=== PATIENT | female | born 1970 | race African-American/Black ===

== ENCOUNTER 2018-01-09 10:17 | Inpatient (IN) | payer OTHER ==
[2018-01-09 10:38] VITALS: BMI 30.1
--- NOTE | 2018-01-09 11:25 | HP ---
CIWA Score - CIWA Score Nausea/Vomitin-Mild Nausea/No Vomiting Muscle Tremors: 2 Anxiety: 6 Agitation: 1-Slight > Activity Paroxysmal Sweats: No Perspiration Orientation: 0-Oriented Tacttile Disturbances: 0-None Auditory Disturbances: 0-None Visual Disturbances: 0-None Headache: 0-None Present CIWA-Ar Total Score: 10 Admission ROS S - HPI Chief Complaint: patient here requesting detox from etoh use , reports every other day 5 cans x 24 oz x several years, reports irritability , nausea, diarrhea, tremors if not drinking , denies w/d seizures, + blackouts, denies falls, latest use 2 d . ago . Currently reports severe anxiety , diarrhea, chills, nausea , tremors. pmhx : hiv + , hld , bipolar d/o , hsv , pshx : ectopic 1986 w/ fallopian tube removal all : nkda lmp : age 43 cocaine use 100-150 $ / every other day , denies ivdu tobacco : 7-8 cigs/ day , requesting nrt w/ gum cannabis : 5 $ / every other day Allergies/Adverse Reactions: Allergies Allergy/AdvReac Type Severity Reaction Status Date / Time No Known Drug Allergies Allergy Verified 01/09/18 10:41 - Ebola screening Have you traveled outside of the country in the last 21 days: No Have you had contact with anyone from an Ebola affected area: No Have you been sick,other than usual withdrawal symptoms: No Do you have a fever: No Patient History - Patient Medical History Hx Anemia: No Hx Asthma: No Hx Chronic Obstructive Pulmonary Disease (COPD): No Hx Cancer: No Hx Cardiac Disorders: No Hx Congestive Heart Failure: No Hx Hypertension: No Hx Hypercholesterolemia: Yes (no med) Hx Pacemaker: No HX Cerebrovascular Accident: No Hx Seizures: No Hx Dementia: No Hx Diabetes: No Hx Gastrointestinal Disorders: Yes (acid reflux) Hx Liver Disease: No Hx Genitourinary Disorders: No Hx Sexually Transmitted Disorders: Yes (genital herpes) Hx Renal Disease (ESRD): No Hx Thyroid Disease: No Hx Human Immunodeficiency Virus (HIV): Yes (since 2006) Hx Hepatitis C: No Hx Depression: Yes Hx Suicide Attempt: Yes (pill overdose in 2014) Hx Schizophrenia: No - Patient Surgical History Past Surgical History: Yes Hx Neurologic Surgery: No Hx Cataract Extraction: No Hx Cardiac Surgery: No Hx Lung Surgery: No Hx Breast Surgery: No Hx Breast Biopsy: No Hx Abdominal Surgery: Yes (ectopic in 1996) Hx Appendectomy: No Hx Cholecystectomy: No Hx Genitourinary Surgery: No Hx Section: No Hx Orthopedic Surgery: No Other Surgical History: ectopic in 1996 Anesthesia Reaction: No - PPD History Previous Implant?: Yes Documented Results: Negative w/proof Implanted On Prior [facility] Admission?: Yes Date: 08/14/12 Results: 0 mm - Reproductive History Patient : No - Smoking Cessation Smoking history: Current every day smoker Have you smoked in the past 12 months: Yes Aproximately how many cigarettes per day: 6 Hx Chewing Tobacco Use: No Initiated information on smoking cessation: No - Substances Abused Crack Route: Smoking Frequency: 3-6 times per week Amount used: $100 Age of first use: 30 Date of Last Use: 01/07/18 Alcohol-beer Route: Oral Frequency: Daily Amount used: 5 (24 oz.) Age of first use: 16 Date of Last Use: 01/07/18 Marijuana Route: Smoking Frequency: 3-6 times per week Amount used: $5 Age of first use: 11 Date of Last Use: 01/07/18 Family Disease History - Family Disease History Family Disease History: Heart Disease: Grandparent (mi), Mother (cva) Admission Physical Exam BHS - Vital Signs Vital Signs: Vital Signs - 24 hr 01/09/18 10:30 Temperature 98.1 F Pulse Rate 63 Respiratory 18 Rate Blood Pressure 134/82 - Physical General Appearance: Yes: Within Normal Limits, No Apparent Distress, Nourished, Appropriately Dressed HEENTM: Yes: Within Normal Limits, EOMI, Hearing grossly Normal, Normocephalic, Normal Voice, MICHAELLE, Pharynx Normal, Nasal Congestion, Rhinorrhea, Other (nasal mucosa erythema) Respiratory: Yes: Chest Non-Tender, Decreased Breath Sounds, No Respiratory Distress, No Accessory Muscle Use, Wheezing (Bobby UL) Neck: Yes: Within Normal Limits, No masses,lesions,Nodules, Trachea in good position, Other (left sided ol d scar - per pt lymph node drainage 2011) Cardiology: Yes: Within Normal Limits, Regular Rhythm, Regular Rate Abdominal: Yes: Within Normal Limits, Normal Bowel Sounds, Non Tender, Flat, Soft Genitourinary: Yes: Within Normal Limits Back: Yes: Within Normal Limits, Normal Inspection Musculoskeletal: Yes: Within Normal Limits, full range of Motion, Gait Steady, Pelvis Stable Extremities: Yes: Normal Capillary Refill, Normal Inspection, Normal Range of Motion, Non-Tender, Tremors Neurological: Yes: Within Normal Limits, Fully Oriented, Alert, Motor Strength 5 /5, Normal Mood/Affect, Normal Response Integumentary: Yes: Within Normal Limits, Normal Color, Dry, Warm Lymphatic: Yes: Within Normal Limits BHS Breath Alcohol Content Breath Alcohol Content: 0 Urine Pregancy Test - Result Urine Test Results: Negative- NO Line Present Urine Drug Screen - Results Drug Screen Negative: No Urine Drug Screen Results: THC-Marijuana, HEMANTH-Cocaine
[2018-01-09] MEDS ORDERED: IBUPROFEN 400 MG TABLET (FP) PO PRN (11:26)
[2018-01-09] MEDS ORDERED: ACETAMINOPHEN 325 MG TABLET (FP) PO PRN (11:26)
[2018-01-09] MEDS ORDERED: MAGNESIUM CITRATE 300 ML BOTTLE PO PRN (11:26)
[2018-01-09] MEDS ORDERED: guaiFENesin/D-METHORPHAN HB 10 ML UNIT-DOSE CUPS PO PRN (11:26)
[2018-01-09] MEDS ORDERED: MENTHOL/PHENOL 1 EACH UD MM PRN (11:26)
[2018-01-09] MEDS ORDERED: hydrOXYzine PAMOATE 25 MG CAPSULE (FP) PO PRN (15:05)
[2018-01-09] MEDS: EMTRICITAB/RILPIVIRI/TENOF ALA (ODEFSEY) TABLET PO SCH (15:16)
[2018-01-09] MEDS: [UNRECOGNIZED DRUG - OTHER] PO SCH (15:28)
[2018-01-09] MEDS: ALBUTEROL SO4 0.083% IH SOL 2.5 MG/3 ML VIAL.NEB. NEB PRN (15:29)
--- NOTE | 2018-01-09 16:18 | EKG ---
Test Reason : Blood Pressure : / mmHG Vent. Rate : 056 BPM Atrial Rate : 056 BPM P-R Int : 160 ms QRS Dur : 092 ms QT Int : 446 ms P-R-T Axes : 055 013 048 degrees QTc Int : 430 ms SINUS BRADYCARDIA OTHERWISE NORMAL ECG NO PREVIOUS ECGS AVAILABLE Confirmed by BRYANT HSU MD ([id number]) on 01/09/2018 4:18:42 PM Referred By: Confirmed By:BRYANT HSU MD
[2018-01-09] MEDS: chlordiazePOXIDE HCL 25 MG CAPSULE PO SCH ×2 (17:39→22:20)
[2018-01-09 18:07] LABS: URINE APPEARANCE CLEAR; URINE BILIRUBIN NEGATIVE (<2.0 mg/dL); URINE COLOR LTYELLOW; URINE GLUCOSE (UA) NEGATIVE (NEGATIVE); URINE KETONE NEGATIVE (NEGATIVE); URINE LEUK ESTERASE NEGATIVE (NEGATIVE); URINE NITRITE NEGATIVE (NEGATIVE); URINE PROTEIN NEGATIVE (NEGATIVE); URINE UROBILINOGEN NEGATIVE mg/dL (0.2-1.0)
[2018-01-09 18:11] LABS: EPI CELLS RARE /HPF (FEW); URINE MUCUS RARE
[2018-01-09] MEDS: THIAMINE HCL 100 MG TABLET (FP) PO SCH (22:19)
[2018-01-09] MEDS: MELATONIN 5 MG TABLETS PO PRN (22:20)
[2018-01-10] MEDS: chlordiazePOXIDE HCL 25 MG CAPSULE PO SCH ×2 (05:20→10:16)
[2018-01-10] MEDS: ALBUTEROL SO4 0.083% IH SOL 2.5 MG/3 ML VIAL.NEB. NEB PRN ×2 (05:28→22:56)
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
[2018-01-10] MEDS: risperiDONE 0.5 MG TABLET (FP) PO SCH ×2 (10:16→22:52)
[2018-01-10 10:17] LABS: HEMATOCRIT 38.7 % (32.4-45.2); HEMOGLOBIN 12.6 GM/dL (10.7-15.3); MCH 29.6 pg (25.7-33.7); MCHC 32.7 g/dl (32.0-36.0); MEAN CELL VOLUME 90.7 fl (80-96); MEAN PLT VOLUME 9.9 fl (7.5-11.1); PLATELET COUNT 200 K/MM3 (134-434); RBC 4.27 M/mm3 (3.60-5.2); WHITE BLOOD COUNT 4.2 K/mm3 (4.0-10.0)
[2018-01-10] MEDS: PRENATAL VITAMINS W/ FOLIC ACID TABLET (FP) PO SCH (10:17)
[2018-01-10] MEDS: EMTRICITAB/RILPIVIRI/TENOF ALA (ODEFSEY) TABLET PO SCH (10:17)
[2018-01-10] MEDS: [UNRECOGNIZED DRUG - OTHER] PO SCH (10:17)
[2018-01-10 10:31] LABS: ALBUMIN 3.7 g/dl (3.4-5.0); ALK PHOS 74 U/L (45-117); ANION GAP 9 MMOL/L (8-16); BILIRUBIN,TOTAL 0.2 mg/dL (0.2-1); BLOOD UREA NITROGEN 11 mg/dL (7-18); CALCIUM 9.2 mg/dL (8.5-10.1); CHLORIDE 108 mmol/L (98-107); CO2 26 mmol/L (21-32); GLUCOSE,RANDOM 98 mg/dL (74-106); POTASSIUM 3.7 mmol/L (3.5-5.1); SGOT/AST 25 U/L (15-37); SGPT/ALT 33 U/L (13-61); SODIUM 143 mmol/L (136-145); TOT PROT 7.4 g/dl (6.4-8.2)
--- NOTE | 2018-01-10 10:36 | PN ---
S CIWA - CIWA Score Nausea/Vomitin-No Nausea/No Vomiting Muscle Tremors: 1-None Visible, but [place] Anxiety: 1-Mildly Anxious Agitation: 0-Normal Activity Paroxysmal Sweats: 1-Minimal Palms Moist Orientation: 0-Oriented Tacttile Disturbances: 0-None Auditory Disturbances: 0-None Visual Disturbances: 0-None Headache: 0-None Present CIWA-Ar Total Score: 3 BHS Progress Note (SOAP) Subjective: PATIENT C/O MILD ANXIETY, CHILLS, COLD SWEATS. Objective: 01/10/18 10:35 Laboratory Tests 01/09/18 01/10/18 01/10/18 15:00 06:00 06:00 WBC 4.2 RBC 4.27 Hgb 12.6 Hct 38.7 MCV 90.7 MCH 29.6 MCHC 32.7 RDW 14.0 Plt Count 200 D MPV 9.9 Sodium 143 Potassium 3.7 Chloride 108 H Carbon Dioxide 26 Anion Gap 9 BUN 11 Creatinine 1.0 Creat Clearance w eGFR 59.43 Random Glucose 98 Calcium 9.2 Total Bilirubin 0.2 AST 25 ALT 33 Alkaline Phosphatase 74 Total Protein 7.4 Albumin 3.7 Urine Color Ltyellow Urine Appearance Clear Urine pH 5.0 Ur Specific [place] 1.018 Urine Protein Negative Urine Glucose (UA) Negative Urine Ketones Negative Urine Blood 2+ H Urine Nitrite Negative Urine Bilirubin Negative Urine Urobilinogen Negative Ur Leukocyte Esterase Negative Urine WBC (Auto) 2 Urine RBC (Auto) 1 Ur Epithelial Cells Rare Urine Mucus Rare Vital Signs Period Temp Pulse Resp BP Sys/Herman Pulse Ox Last 24 Hr 97.5 F-98.3 F 64-86 18-19 106-134/51-78 ALERT AND ORIENTED SKIN WARM AND MOIST CAR S1S2 RESP CTA BL Assessment: 01/10/18 10:36 WITHDRAWAL SYNDROME Plan: ENCOURAGE PO FLUIDS CONTINUE TO MONITOR CLINICALLY CONTINUE DETOX PER PROTOCOL
[2018-01-10] MEDS: GABAPENTIN 300 MG CAPSULE (FP) PO SCH ×2 (11:17→19:15)
[2018-01-10] MEDS: RANITIDINE HCL 150 MG TABLET (FP) PO SCH (11:17)
[2018-01-10] MEDS: chlordiazePOXIDE 5 MG CAPSULE PO SCH ×2 (17:45→22:48)
[2018-01-10] MEDS: THIAMINE HCL 100 MG TABLET (FP) PO SCH (22:47)
[2018-01-10] MEDS: ATORVASTATIN CA 10 MG TABLET (FP) PO SCH (22:48)
[2018-01-10] MEDS: MAG HYDROX/AL HYDROX/SIMETH 30 ML UNIT-DOSE CUP PO PRN (22:49)
[2018-01-10] MEDS: NICOTINE POLACRILEX 2 MG GUM BUC PRN (22:59)
[2018-01-11] MEDS: GABAPENTIN 300 MG CAPSULE (FP) PO SCH ×3 (05:16→21:37)
[2018-01-11] MEDS: chlordiazePOXIDE 5 MG CAPSULE PO SCH ×2 (05:16→10:36)
[2018-01-11] MEDS: MAGNESIUM HYDROX 2400MG/30ML ORAL SUSPENSION 30 ML CUP PO PRN (05:18)
[2018-01-11] MEDS ORDERED: CITRIC ACID/SODIUM CITRATE 30 ML UNIT-DOSE CUP PO ONE (10:06)
--- NOTE | 2018-01-11 10:11 | PN ---
S CIWA - CIWA Score Nausea/Vomitin Muscle Tremors: 2 Anxiety: 2 Agitation: 2 Paroxysmal Sweats: 2 Orientation: 0-Oriented Tacttile Disturbances: 2-Mild Itch/Numbness/Burn Auditory Disturbances: 0-None Visual Disturbances: 0-None Headache: 1-Very Mild CIWA-Ar Total Score: 13 S Progress Note (SOAP) Subjective: Abdominal cramps 2/2 constipation, interrupted sleep Objective: 01/11/18 10:11 Vital Signs 01/11/18 01/11/18 01/11/18 03:30 06:00 09:54 Temperature 97.2 F L 98.2 F Pulse Rate 111 H 108 H Respiratory 18 20 20 Rate Blood Pressure 116/77 114/68 Laboratory Last Values WBC 4.2 K/mm3 (4.0-10.0) 01/10/18 06:00 RBC 4.27 M/mm3 (3.60-5.2) 01/10/18 06:00 Hgb 12.6 GM/dL (10.7-15.3) 01/10/18 06:00 Hct 38.7 % (32.4-45.2) 01/10/18 06:00 MCV 90.7 fl (80-96) 01/10/18 06:00 MCH 29.6 pg (25.7-33.7) 01/10/18 06:00 MCHC 32.7 g/dl (32.0-36.0) 01/10/18 06:00 RDW 14.0 % (11.6-15.6) 01/10/18 06:00 Plt Count 200 K/MM3 (134-434) D 01/10/18 06:00 MPV 9.9 fl (7.5-11.1) 01/10/18 06:00 Sodium 143 mmol/L (136-145) 01/10/18 06:00 Potassium 3.7 mmol/L (3.5-5.1) 01/10/18 06:00 Chloride 108 mmol/L (98-107) H 01/10/18 06:00 Carbon Dioxide 26 mmol/L (21-32) 01/10/18 06:00 Anion Gap 9 MMOL/L (8-16) 01/10/18 06:00 BUN 11 mg/dL (7-18) 01/10/18 06:00 Creatinine 1.0 mg/dL (0.55-1.3) 01/10/18 06:00 Creat Clearance w eGFR 59.43 (>60) 01/10/18 06:00 Random Glucose 98 mg/dL (74-106) 01/10/18 06:00 Calcium 9.2 mg/dL (8.5-10.1) 01/10/18 06:00 Total Bilirubin 0.2 mg/dL (0.2-1) 01/10/18 06:00 AST 25 U/L (15-37) 01/10/18 06:00 ALT 33 U/L (13-61) 01/10/18 06:00 Alkaline Phosphatase 74 U/L (45-117) 01/10/18 06:00 Total Protein 7.4 g/dl (6.4-8.2) 01/10/18 06:00 Albumin 3.7 g/dl (3.4-5.0) 01/10/18 06:00 Urine Color Ltyellow 01/09/18 15:00 Urine Appearance Clear 01/09/18 15:00 Urine pH 5.0 (5.0-8.0) 01/09/18 15:00 Ur Specific [place] 1.018 (1.001-1.035) 01/09/18 15:00 Urine Protein Negative (NEGATIVE) 01/09/18 15:00 Urine Glucose (UA) Negative (NEGATIVE) 01/09/18 15:00 Urine Ketones Negative (NEGATIVE) 01/09/18 15:00 Urine Blood 2+ (NEGATIVE) H 01/09/18 15:00 Urine Nitrite Negative (NEGATIVE) 01/09/18 15:00 Urine Bilirubin Negative (<2.0 mg/dL) 01/09/18 15:00 Urine Urobilinogen Negative mg/dL (0.2-1.0) 01/09/18 15:00 Ur Leukocyte Esterase Negative (NEGATIVE) 01/09/18 15:00 Urine WBC (Auto) 2 /hpf (3-5) 01/09/18 15:00 Urine RBC (Auto) 1 /hpf (0-3) 01/09/18 15:00 Ur Epithelial Cells Rare /HPF (FEW) 01/09/18 15:00 Urine Mucus Rare 01/09/18 15:00 RPR Titer Nonreactive (NONREACTIVE) 01/10/18 06:00 Labs noted Assessment: 01/11/18 10:11 Withdrawal sx Plan: Continue detox
--- NOTE | 2018-01-11 10:16 | PN ---
BHS Progress Note Note: Addendum to note Bicitra 1 dose ordered for constipation following MOM x 2 days with no positive effect
[2018-01-11] MEDS: risperiDONE 0.5 MG TABLET (FP) PO SCH ×2 (10:36→22:27)
[2018-01-11] MEDS: PRENATAL VITAMINS W/ FOLIC ACID TABLET (FP) PO SCH (10:36)
[2018-01-11] MEDS: [UNRECOGNIZED DRUG - OTHER] PO SCH (10:39)
[2018-01-11] MEDS: RANITIDINE HCL 150 MG TABLET (FP) PO SCH (13:02)
[2018-01-11] MEDS: MAG HYDROX/AL HYDROX/SIMETH 30 ML UNIT-DOSE CUP PO PRN (16:06)
[2018-01-11] MEDS: chlordiazePOXIDE HCL 10 MG CAPSULE PO SCH (17:56)
[2018-01-11] MEDS: MELATONIN 5 MG TABLETS PO PRN (22:27)
[2018-01-11] MEDS: ATORVASTATIN CA 10 MG TABLET (FP) PO SCH (22:27)
[2018-01-11] MEDS: THIAMINE HCL 100 MG TABLET (FP) PO SCH (22:27)
[2018-01-12] MEDS: chlordiazePOXIDE HCL 10 MG CAPSULE PO SCH ×3 (05:09→23:36)
[2018-01-12] MEDS: GABAPENTIN 300 MG CAPSULE (FP) PO SCH ×3 (05:10→23:38)
[2018-01-12] MEDS: [UNRECOGNIZED DRUG - OTHER] PO SCH (08:00)
[2018-01-12] MEDS: ALBUTEROL SO4 0.083% IH SOL 2.5 MG/3 ML VIAL.NEB. NEB PRN (09:02)
[2018-01-12] MEDS: risperiDONE 0.5 MG TABLET (FP) PO SCH ×2 (10:37→23:40)
[2018-01-12] MEDS: PRENATAL VITAMINS W/ FOLIC ACID TABLET (FP) PO SCH (10:37)
[2018-01-12] MEDS: RANITIDINE HCL 150 MG TABLET (FP) PO SCH (12:00)
--- NOTE | 2018-01-12 12:57 | PN ---
BHS Progress Note (SOAP) Subjective: feeling better no tremor less sweat no gi distress discuss aftercare with staff patient finished her own ART medication agrees to visit infectious disease provider for follow up Objective: 01/12/18 12:59 Vital Signs Temperature 97.9 F 01/12/18 09:32 Pulse Rate 96 H 01/12/18 09:32 Respiratory Rate 18 01/12/18 09:32 Blood Pressure 107/65 01/12/18 09:32 O2 Sat by Pulse Oximetry (%) Laboratory Last Values WBC 4.2 K/mm3 (4.0-10.0) 01/10/18 06:00 RBC 4.27 M/mm3 (3.60-5.2) 01/10/18 06:00 Hgb 12.6 GM/dL (10.7-15.3) 01/10/18 06:00 Hct 38.7 % (32.4-45.2) 01/10/18 06:00 MCV 90.7 fl (80-96) 01/10/18 06:00 MCH 29.6 pg (25.7-33.7) 01/10/18 06:00 MCHC 32.7 g/dl (32.0-36.0) 01/10/18 06:00 RDW 14.0 % (11.6-15.6) 01/10/18 06:00 Plt Count 200 K/MM3 (134-434) D 01/10/18 06:00 MPV 9.9 fl (7.5-11.1) 01/10/18 06:00 Sodium 143 mmol/L (136-145) 01/10/18 06:00 Potassium 3.7 mmol/L (3.5-5.1) 01/10/18 06:00 Chloride 108 mmol/L (98-107) H 01/10/18 06:00 Carbon Dioxide 26 mmol/L (21-32) 01/10/18 06:00 Anion Gap 9 MMOL/L (8-16) 01/10/18 06:00 BUN 11 mg/dL (7-18) 01/10/18 06:00 Creatinine 1.0 mg/dL (0.55-1.3) 01/10/18 06:00 Creat Clearance w eGFR 59.43 (>60) 01/10/18 06:00 Random Glucose 98 mg/dL (74-106) 01/10/18 06:00 Calcium 9.2 mg/dL (8.5-10.1) 01/10/18 06:00 Total Bilirubin 0.2 mg/dL (0.2-1) 01/10/18 06:00 AST 25 U/L (15-37) 01/10/18 06:00 ALT 33 U/L (13-61) 01/10/18 06:00 Alkaline Phosphatase 74 U/L (45-117) 01/10/18 06:00 Total Protein 7.4 g/dl (6.4-8.2) 01/10/18 06:00 Albumin 3.7 g/dl (3.4-5.0) 01/10/18 06:00 Urine Color Ltyellow 01/09/18 15:00 Urine Appearance Clear 01/09/18 15:00 Urine pH 5.0 (5.0-8.0) 01/09/18 15:00 Ur Specific [place] 1.018 (1.001-1.035) 01/09/18 15:00 Urine Protein Negative (NEGATIVE) 01/09/18 15:00 Urine Glucose (UA) Negative (NEGATIVE) 01/09/18 15:00 Urine Ketones Negative (NEGATIVE) 01/09/18 15:00 Urine Blood 2+ (NEGATIVE) H 01/09/18 15:00 Urine Nitrite Negative (NEGATIVE) 01/09/18 15:00 Urine Bilirubin Negative (<2.0 mg/dL) 01/09/18 15:00 Urine Urobilinogen Negative mg/dL (0.2-1.0) 01/09/18 15:00 Ur Leukocyte Esterase Negative (NEGATIVE) 01/09/18 15:00 Urine WBC (Auto) 2 /hpf (3-5) 01/09/18 15:00 Urine RBC (Auto) 1 /hpf (0-3) 01/09/18 15:00 Ur Epithelial Cells Rare /HPF (FEW) 01/09/18 15:00 Urine Mucus Rare 01/09/18 15:00 RPR Titer Nonreactive (NONREACTIVE) 01/10/18 06:00 lab noted Assessment: 01/12/18 12:59 mild withdrawal sx Plan: medically supervised detox
[2018-01-12] MEDS: NICOTINE POLACRILEX 2 MG GUM BUC PRN (13:01)
[2018-01-12] MEDS: MAG HYDROX/AL HYDROX/SIMETH 30 ML UNIT-DOSE CUP PO PRN (15:17)
[2018-01-12] MEDS: MAGNESIUM HYDROX 2400MG/30ML ORAL SUSPENSION 30 ML CUP PO PRN (18:26)
[2018-01-12] MEDS: chlordiazePOXIDE 5 MG CAPSULE PO SCH ×2 (18:26→23:18)
[2018-01-12] MEDS: ATORVASTATIN CA 10 MG TABLET (FP) PO SCH (23:37)
[2018-01-12] MEDS: THIAMINE HCL 100 MG TABLET (FP) PO SCH (23:44)
[2018-01-13] MEDS: chlordiazePOXIDE 5 MG CAPSULE PO SCH (05:00)
[2018-01-13] MEDS: GABAPENTIN 300 MG CAPSULE (FP) PO SCH (05:00)
[2018-01-13] MEDS: [UNRECOGNIZED DRUG - OTHER] PO SCH (08:00)
[2018-01-13 09:11] VITALS: BP 132/72; PULSE 96; TEMP 99.3
[2018-01-13] MEDS: risperiDONE 0.5 MG TABLET (FP) PO SCH (09:21)
[2018-01-13] MEDS: PRENATAL VITAMINS W/ FOLIC ACID TABLET (FP) PO SCH (09:22)
--- NOTE | 2018-01-13 21:01 | DS ---
[facility] Detox Discharge Summary Admission Date: 01/09/18 Discharge Date: 01/13/18 - History Present History: Alcohol Dependence, Cannabis Dependence, Cocaine Dependence Additional Comments: Admitted with alcohol withdrawal. Hx alcohol use disorder since age 16, Marijuana use disorder since age 11. Cocaine/crack use disorder since age 30. - Physical Exam Results Vital Signs: Vital Signs Temperature 99.3 F 01/13/18 09:11 Pulse Rate 96 H 01/13/18 09:11 Respiratory Rate 18 01/13/18 09:11 Blood Pressure 132/72 01/13/18 09:11 O2 Sat by Pulse Oximetry (%) Pertinent Admission Physical Exam Findings: Admitted for signs and symptoms of alcohol withdrawal. Laboratory Tests 01/09/18 01/10/18 01/10/18 15:00 06:00 06:00 WBC 4.2 RBC 4.27 Hgb 12.6 Hct 38.7 MCV 90.7 MCH 29.6 MCHC 32.7 RDW 14.0 Plt Count 200 D MPV 9.9 Sodium 143 Potassium 3.7 Chloride 108 H Carbon Dioxide 26 Anion Gap 9 BUN 11 Creatinine 1.0 Creat Clearance w eGFR 59.43 Random Glucose 98 Calcium 9.2 Total Bilirubin 0.2 AST 25 ALT 33 Alkaline Phosphatase 74 Total Protein 7.4 Albumin 3.7 Urine Color Ltyellow Urine Appearance Clear Urine pH 5.0 Ur Specific [place] 1.018 Urine Protein Negative Urine Glucose (UA) Negative Urine Ketones Negative Urine Blood 2+ H Urine Nitrite Negative Urine Bilirubin Negative Urine Urobilinogen Negative Ur Leukocyte Esterase Negative Urine WBC (Auto) 2 Urine RBC (Auto) 1 Ur Epithelial Cells Rare Urine Mucus Rare RPR Titer 01/10/18 06:00 WBC RBC Hgb Hct MCV MCH MCHC RDW Plt Count MPV Sodium Potassium Chloride Carbon Dioxide Anion Gap BUN Creatinine Creat Clearance w eGFR Random Glucose Calcium Total Bilirubin AST ALT Alkaline Phosphatase Total Protein Albumin Urine Color Urine Appearance Urine pH Ur Specific [place] Urine Protein Urine Glucose (UA) Urine Ketones Urine Blood Urine Nitrite Urine Bilirubin Urine Urobilinogen Ur Leukocyte Esterase Urine WBC (Auto) Urine RBC (Auto) Ur Epithelial Cells Urine Mucus RPR Titer Nonreactive Labs reviewed. - Treatment Hospital Course: Detox Protocol Followed, Detoxed Safely, Responded well, Discharged Condition Good - Medication Discharge Medications: Ambulatory Orders Risperidone [Risperdal] 0.5 mg PO BID 08/12/12 Benzonatate 100 mg PO Q8H 01/09/18 Calcium 250Mg/Vit-D 125 Units [Oscal 250 mg+D -] 1 combo PO DAILY 01/09/18 Cyanocobalamin [Vitamin B12 -] 100 mcg PO DAILY 01/09/18 Emtricitab/Rilpiviri/Tenof Ala [Odefsey Tablet] 1 each PO DAILY 01/09/18 Multivitamins [Multivit ([facility] Formulary)] 1 tab PO DAILY 01/09/18 Ranitidine [Zantac -] 150 mg PO HS 01/09/18 Risperidone [Risperdal -] 1 mg PO HS 01/09/18 Atorvastatin Calcium [Lipitor] 10 mg PO HS #30 tablet 01/12/18 Gabapentin [Neurontin -] 300 mg PO Q8H #30 capsule 01/12/18 - Diagnosis (1) Alcohol dependence with withdrawal, uncomplicated Status: Acute (2) Cocaine dependence Status: Chronic (3) Human immunodeficiency virus infection Status: Chronic (4) Nicotine dependence Status: Chronic - AMA Did Patient Leave Against Medical Advice: No
== END 2018-01-13 09:30 | disposition home or self-care (01) | DRG 774 ==
LOC: YASAS 10:17 → Y6N 12:25
PROC: HZ2ZZZZ Detoxification Services for Substance Abuse Treatment (ICD-10-PCS; principal; 2018-01-09)
DX: F10.230 Alcohol dependence with withdrawal, uncomplicated (principal); F14.20 Cocaine dependence, uncomplicated; F17.210 Nicotine dependence, cigarettes, uncomplicated; F31.9 Bipolar disorder, unspecified; F43.10 Post-traumatic stress disorder, unspecified; F32.9 Major depressive disorder, single episode, unspecified; Z21 Asymptomatic human immunodeficiency virus [HIV] infection status; K21.9 Gastro-esophageal reflux disease without esophagitis; A60.04 Herpesviral vulvovaginitis; E78.5 Hyperlipidemia, unspecified; Z91.5 Personal history of self-harm
CPT/HCPCS: 36415; 80053; 81003; 81015; 85027; 86593; 93005; 93010; 94640

== ENCOUNTER 2018-11-20 10:45 | Inpatient (IN) | payer OTHER | END 2018-11-24 09:46 | disposition left against medical advice (07) | LOC: YASAS 10:45 → Y3W 14:36 | PROC: HZ42ZZZ Group Counseling for Substance Abuse Treatment, Cognitive-Behavioral (ICD-10-PCS; principal; 2018-11-20) | DX: F10.20 Alcohol dependence, uncomplicated (principal); F14.20 Cocaine dependence, uncomplicated; F12.20 Cannabis dependence, uncomplicated; F17.210 Nicotine dependence, cigarettes, uncomplicated; F19.24 Other psychoactive substance dependence with psychoactive substance-induced mood disorder; F31.9 Bipolar disorder, unspecified; F43.10 Post-traumatic stress disorder, unspecified; F41.8 Other specified anxiety disorders; F32.9 Major depressive disorder, single episode, unspecified; Z21 Asymptomatic human immunodeficiency virus [HIV] infection status; E78.5 Hyperlipidemia, unspecified; L85.3 Xerosis cutis; B37.3 Candidiasis of vulva and vagina; N89.8 Other specified noninflammatory disorders of vagina; L29.2 Pruritus vulvae ==

== ENCOUNTER 2021-01-27 14:53 | Inpatient (IN) | payer OTHER ==
[2021-01-27 16:40] VITALS: BMI 30.9
[2021-01-27] MEDS ORDERED: NICOTINE 14 MG/24 HOURS TOPICAL PATCH TD PRN (16:40)
[2021-01-27] MEDS ORDERED: NICOTINE 10 MG CARTRIDGE (INHALER) IH PRN (16:40)
[2021-01-27] MEDS ORDERED: METHOCARBAMOL 500 MG TABLET PO PRN (16:40)
[2021-01-27] MEDS ORDERED: BISMUTH SUBSALICYLATE 524 MG/30 ML PO PRN (16:40)
[2021-01-27] MEDS ORDERED: MAG HYDROX/AL HYDROX/SIMETH 30 ML UNIT-DOSE CUP PO PRN (16:40)
[2021-01-27] MEDS ORDERED: ONDANSETRON *ODT* 4 MG TABLET SL PRN (16:40)
[2021-01-27] MEDS ORDERED: IBUPROFEN 400 MG TABLET (FP) PO PRN (16:40)
[2021-01-27] MEDS ORDERED: ACETAMINOPHEN 325 MG TABLET (FP) PO PRN ×2 (16:40)
[2021-01-27] MEDS ORDERED: MENTHOL/PHENOL 1 EACH UD MM PRN (16:40)
[2021-01-27] MEDS ORDERED: MAGNESIUM CITRATE 300 ML BOTTLE PO PRN (16:40)
[2021-01-27] MEDS ORDERED: MAGNESIUM HYDROX 2400MG/30ML ORAL SUSPENSION 30 ML CUP PO PRN (16:40)
[2021-01-27] MEDS: hydrOXYzine PAMOATE 25 MG CAPSULE (FP) PO SCH ×2 (20:47→22:28)
[2021-01-27] MEDS: PRENATAL VITAMINS W/ FOLIC ACID TABLET (FP) PO SCH (20:49)
[2021-01-27] MEDS: MELATONIN 5 MG TABLETS PO SCH (22:28)
[2021-01-27] MEDS: THIAMINE HCL 100 MG TABLET (FP) PO SCH (22:29)
[2021-01-28] MEDS: hydrOXYzine PAMOATE 25 MG CAPSULE (FP) PO SCH ×5 (06:42→22:16)
[2021-01-28] MEDS: PRENATAL VITAMINS W/ FOLIC ACID TABLET (FP) PO SCH (11:14)
[2021-01-28] MEDS ORDERED: FLU VACC QS2021-22(6MOS UP)/PF 60 MCG/0.5 ML SYRINGE IM ONE (12:00)
[2021-01-28] MEDS: THIAMINE HCL 100 MG TABLET (FP) PO SCH (22:16)
[2021-01-28] MEDS: MELATONIN 5 MG TABLETS PO SCH (22:17)
[2021-01-29] MEDS: hydrOXYzine PAMOATE 25 MG CAPSULE (FP) PO SCH (06:40)
[2021-01-29] MEDS ORDERED: hydrOXYzine PAMOATE 25 MG CAPSULE (FP) PO PRN (08:24)
[2021-01-29] MEDS: PRENATAL VITAMINS W/ FOLIC ACID TABLET (FP) PO SCH (10:22)
[2021-01-29 12:53] VITALS: BP 118/85; PULSE 86; TEMP 97.9
[2021-01-29 13:34] LABS: HEMATOCRIT 44.5 % (32.4-45.2); HEMOGLOBIN 14.8 GM/dL (10.7-15.3); MCH 29.2 pg (25.7-33.7); MCHC 33.3 g/dl (32.0-36.0); MEAN CELL VOLUME 87.7 fl (80-96); MEAN PLT VOLUME 9.7 fl (7.5-11.1); PLATELET COUNT 219 10^3/uL (134-434); RBC 5.07 M/mm3 (3.60-5.2); RDW 13.9 % (11.6-15.6); WHITE BLOOD COUNT 4.8 K/mm3 (4.0-10.0)
[2021-01-29 13:52] LABS: ALBUMIN 4.2 g/dl (3.4-5.0); BLOOD UREA NITROGEN 12.5 mg/dL (7-18); CALCIUM 9.8 mg/dL (8.5-10.1)
[2021-01-29 13:55] LABS: CREATININE 1.1 mg/dL (0.55-1.3)
[2021-01-29 13:56] LABS: BILIRUBIN,TOTAL 0.2 mg/dL (0.2-1); TOT PROT 8.7 g/dl (6.4-8.2)
[2021-01-29] MEDS ORDERED: metroNIDAZOLE 250 MG TABLET PO SCH (14:00)
[2021-01-29 14:34] LABS: SYPHILIS W/ RPR CONF NON-REACTIVE (NONREACTIVE)
[2021-01-29 17:49] LABS: HIV INTERPRETATION PRESUMPTIVE POSITIVE (NEGATIVE)
[2021-01-29] MEDS ORDERED: ATORVASTATIN CA 10 MG TABLET (FP) PO SCH (22:00)
[2021-01-30] MEDS ORDERED: PANTOPRAZOLE 40 MG TABLET PO SCH (10:00)
[2021-01-30] MEDS ORDERED: ASPIRIN 81 MG CHEWABLE TABLETS PO SCH (10:00)
== END 2021-01-29 15:57 | disposition other institution (70) | DRG 774 ==
LOC: YASAS 14:53 → Y3N 18:20
PROVIDERS: ADMIT Allergy & Immunology; ATTEND Allergy & Immunology
PROC: HZ2ZZZZ Detoxification Services for Substance Abuse Treatment (ICD-10-PCS; principal; 2021-01-27)
DX: F10.230 Alcohol dependence with withdrawal, uncomplicated (principal); F14.20 Cocaine dependence, uncomplicated; F12.20 Cannabis dependence, uncomplicated; F17.210 Nicotine dependence, cigarettes, uncomplicated; F32.9 Major depressive disorder, single episode, unspecified; F41.9 Anxiety disorder, unspecified; Z21 Asymptomatic human immunodeficiency virus [HIV] infection status; E78.5 Hyperlipidemia, unspecified; K59.00 Constipation, unspecified; N76.0 Acute vaginitis; B96.89 Other specified bacterial agents as the cause of diseases classified elsewhere; Z62.810 Personal history of physical and sexual abuse in childhood; Z20.822 Contact with and (suspected) exposure to COVID-19
CPT/HCPCS: 80053; 81025; 85027; 86780; 87389; 90686; C9803; G0008; U0003; U0005

== ENCOUNTER 2021-01-29 13:19 | Inpatient (IN) | payer OTHER ==
[2021-01-29] MEDS ORDERED: MAGNESIUM CITRATE 300 ML BOTTLE PO PRN (13:50)
[2021-01-29] MEDS ORDERED: P-EPHED 60MG/TRIPROLIDI 2.5MG TABLET PO PRN (13:50)
[2021-01-29] MEDS ORDERED: LOPERAMIDE HCL 2 MG CAPSULE PO PRN (13:50)
[2021-01-29] MEDS ORDERED: MENTHOL/PHENOL 1 EACH UD MM PRN (13:50)
[2021-01-29] MEDS ORDERED: MAG HYDROX/AL HYDROX/SIMETH 30 ML UNIT-DOSE CUP PO PRN (13:50)
[2021-01-29] MEDS ORDERED: IBUPROFEN 400 MG TABLET (FP) PO PRN (13:50)
[2021-01-29] MEDS: THIAMINE HCL 100 MG TABLET (FP) PO SCH (21:05)
[2021-01-29] MEDS: MELATONIN 5 MG TABLETS PO SCH (21:05)
[2021-01-29] MEDS: hydrOXYzine PAMOATE 25 MG CAPSULE (FP) PO PRN (21:06)
[2021-01-29] MEDS ORDERED: metroNIDAZOLE 250 MG TABLET PO SCH (22:00)
[2021-01-30] MEDS: metroNIDAZOLE 500 MG TABLET PO SCH ×5 (06:28→21:12)
[2021-01-30] MEDS ORDERED: PT OWN MED DRAWER 7, Y5N ONE (06:30)
[2021-01-30] MEDS: PRENATAL VITAMINS W/ FOLIC ACID TABLET (FP) PO SCH (09:58)
[2021-01-30] MEDS: NICOTINE 21 MG/24 HOURS TOPICAL PATCH TD SCH (09:58)
[2021-01-30] MEDS ORDERED: COLLOIDAL OATMEAL 1 BAR EACH TP PRN (10:33)
[2021-01-30] MEDS ORDERED: BICTEGRAV/EMTRICIT/TENOFOV (BIKTARVY) 50-200-25 MG TABLET PO ONE (14:30)
[2021-01-30] MEDS: MELATONIN 5 MG TABLETS PO SCH (21:12)
[2021-01-30] MEDS: THIAMINE HCL 100 MG TABLET (FP) PO SCH (21:12)
[2021-01-30] MEDS: ATORVASTATIN CA 10 MG TABLET (FP) PO SCH (21:12)
[2021-01-31] MEDS: metroNIDAZOLE 500 MG TABLET PO SCH ×3 (06:33→21:29)
[2021-01-31] MEDS: NICOTINE 21 MG/24 HOURS TOPICAL PATCH TD SCH (09:45)
[2021-01-31] MEDS: PRENATAL VITAMINS W/ FOLIC ACID TABLET (FP) PO SCH (09:45)
[2021-01-31] MEDS: BICTEGRAV/EMTRICIT/TENOFOV (BIKTARVY) 50-200-25 MG TABLET PO SCH (09:45)
[2021-01-31] MEDS: MINERAL OIL/PETROLAT/WATER TOPICAL CREAM 113 GM JAR TP SCH (09:46)
[2021-01-31] MEDS ORDERED: OMEPRAZOLE PO SCH (10:00)
[2021-01-31] MEDS ORDERED: PATIENT'S OWN MEDICATION (NON-FORMULARY) (Omeprazole 20 MG Capsule.Dr) PO SCH (10:00)
[2021-01-31] MEDS: hydrOXYzine PAMOATE 25 MG CAPSULE (FP) PO PRN (11:38)
[2021-01-31] MEDS: PANTOPRAZOLE 40 MG TABLET PO SCH (13:04)
[2021-01-31] MEDS: MAGNESIUM HYDROX 2400MG/30ML ORAL SUSPENSION 30 ML CUP PO PRN (18:06)
[2021-01-31] MEDS: DOCUSATE SODIUM 100 MG CAPSULE (FP) PO SCH (21:27)
[2021-01-31] MEDS: risperiDONE 1 MG TABLET PO SCH (21:28)
[2021-01-31] MEDS: THIAMINE HCL 100 MG TABLET (FP) PO SCH (21:28)
[2021-01-31] MEDS: ATORVASTATIN CA 10 MG TABLET (FP) PO SCH (21:28)
[2021-01-31] MEDS: ARTIFICIAL TEARS (POLYVINYL ALCOHOL) OPTH DROPS OU PRN (21:29)
[2021-01-31] MEDS: MELATONIN 5 MG TABLETS PO SCH (21:30)
[2021-02-01] MEDS ORDERED: PT OWN MED DRAWER 7, Y5N ONE ×2 (03:08→06:14)
[2021-02-01] MEDS: metroNIDAZOLE 500 MG TABLET PO SCH ×3 (06:12→21:12)
[2021-02-01] MEDS: PRENATAL VITAMINS W/ FOLIC ACID TABLET (FP) PO SCH (09:47)
[2021-02-01] MEDS: BICTEGRAV/EMTRICIT/TENOFOV (BIKTARVY) 50-200-25 MG TABLET PO SCH (09:48)
[2021-02-01] MEDS: NICOTINE 21 MG/24 HOURS TOPICAL PATCH TD SCH (09:49)
[2021-02-01] MEDS: PANTOPRAZOLE 40 MG TABLET PO SCH (09:49)
[2021-02-01] MEDS: MINERAL OIL/PETROLAT/WATER TOPICAL CREAM 113 GM JAR TP SCH (09:49)
[2021-02-01] MEDS: ARTIFICIAL TEARS (POLYVINYL ALCOHOL) OPTH DROPS OU PRN ×2 (11:04→21:13)
[2021-02-01] MEDS: ATORVASTATIN CA 10 MG TABLET (FP) PO SCH (21:12)
[2021-02-01] MEDS: THIAMINE HCL 100 MG TABLET (FP) PO SCH (21:12)
[2021-02-01] MEDS: DOCUSATE SODIUM 100 MG CAPSULE (FP) PO SCH (21:12)
[2021-02-01] MEDS: MELATONIN 5 MG TABLETS PO SCH (21:13)
[2021-02-01] MEDS: risperiDONE 1 MG TABLET PO SCH (21:13)
[2021-02-01] MEDS: hydrOXYzine PAMOATE 25 MG CAPSULE (FP) PO PRN (21:13)
[2021-02-02] MEDS: metroNIDAZOLE 500 MG TABLET PO SCH ×3 (06:26→21:04)
[2021-02-02] MEDS: BICTEGRAV/EMTRICIT/TENOFOV (BIKTARVY) 50-200-25 MG TABLET PO SCH (07:14)
[2021-02-02] MEDS: PRENATAL VITAMINS W/ FOLIC ACID TABLET (FP) PO SCH (09:43)
[2021-02-02] MEDS: PANTOPRAZOLE 40 MG TABLET PO SCH (09:43)
[2021-02-02] MEDS: MINERAL OIL/PETROLAT/WATER TOPICAL CREAM 113 GM JAR TP SCH (09:44)
[2021-02-02] MEDS: NICOTINE 21 MG/24 HOURS TOPICAL PATCH TD SCH (09:44)
[2021-02-02] MEDS: NICOTINE 10 MG CARTRIDGE (INHALER) IH PRN (09:45)
[2021-02-02] MEDS: ARTIFICIAL TEARS (POLYVINYL ALCOHOL) OPTH DROPS OU PRN (21:03)
[2021-02-02] MEDS: THIAMINE HCL 100 MG TABLET (FP) PO SCH (21:03)
[2021-02-02] MEDS: ATORVASTATIN CA 10 MG TABLET (FP) PO SCH (21:03)
[2021-02-02] MEDS: DOCUSATE SODIUM 100 MG CAPSULE (FP) PO SCH (21:04)
[2021-02-02] MEDS: MELATONIN 5 MG TABLETS PO SCH (21:04)
[2021-02-02] MEDS: risperiDONE 1 MG TABLET PO SCH (21:06)
[2021-02-02] MEDS: MAGNESIUM HYDROX 2400MG/30ML ORAL SUSPENSION 30 ML CUP PO PRN (22:55)
[2021-02-03] MEDS: metroNIDAZOLE 500 MG TABLET PO SCH ×2 (06:20→14:15)
[2021-02-03] MEDS: ARTIFICIAL TEARS (POLYVINYL ALCOHOL) OPTH DROPS OU PRN ×2 (06:22→22:03)
[2021-02-03] MEDS: BICTEGRAV/EMTRICIT/TENOFOV (BIKTARVY) 50-200-25 MG TABLET PO SCH (07:46)
[2021-02-03] MEDS: PRENATAL VITAMINS W/ FOLIC ACID TABLET (FP) PO SCH (09:29)
[2021-02-03] MEDS: NICOTINE 21 MG/24 HOURS TOPICAL PATCH TD SCH (09:29)
[2021-02-03] MEDS: PANTOPRAZOLE 40 MG TABLET PO SCH (09:29)
[2021-02-03] MEDS: MINERAL OIL/PETROLAT/WATER TOPICAL CREAM 113 GM JAR TP SCH (09:31)
[2021-02-03] MEDS: hydrOXYzine PAMOATE 25 MG CAPSULE (FP) PO PRN ×2 (14:15→21:31)
[2021-02-03] MEDS: DOCUSATE SODIUM 100 MG CAPSULE (FP) PO SCH (21:30)
[2021-02-03] MEDS: risperiDONE 1 MG TABLET PO SCH (21:31)
[2021-02-03] MEDS: MELATONIN 5 MG TABLETS PO SCH (21:31)
[2021-02-03] MEDS: ATORVASTATIN CA 10 MG TABLET (FP) PO SCH (21:31)
[2021-02-03] MEDS: THIAMINE HCL 100 MG TABLET (FP) PO SCH (21:31)
[2021-02-04] MEDS: ARTIFICIAL TEARS (POLYVINYL ALCOHOL) OPTH DROPS OU PRN ×2 (06:46→22:02)
[2021-02-04] MEDS: BICTEGRAV/EMTRICIT/TENOFOV (BIKTARVY) 50-200-25 MG TABLET PO SCH (07:01)
[2021-02-04] MEDS: PANTOPRAZOLE 40 MG TABLET PO SCH (10:21)
[2021-02-04] MEDS: MINERAL OIL/PETROLAT/WATER TOPICAL CREAM 113 GM JAR TP SCH (10:21)
[2021-02-04] MEDS: NICOTINE 21 MG/24 HOURS TOPICAL PATCH TD SCH (10:21)
[2021-02-04] MEDS: PRENATAL VITAMINS W/ FOLIC ACID TABLET (FP) PO SCH (10:21)
[2021-02-04] MEDS: risperiDONE 1 MG TABLET PO SCH (22:02)
[2021-02-04] MEDS: THIAMINE HCL 100 MG TABLET (FP) PO SCH (22:02)
[2021-02-04] MEDS: ATORVASTATIN CA 10 MG TABLET (FP) PO SCH (22:02)
[2021-02-04] MEDS: hydrOXYzine PAMOATE 25 MG CAPSULE (FP) PO PRN (22:02)
[2021-02-04] MEDS: DOCUSATE SODIUM 100 MG CAPSULE (FP) PO SCH (22:03)
[2021-02-04] MEDS: MELATONIN 5 MG TABLETS PO SCH (22:03)
[2021-02-05] MEDS: BICTEGRAV/EMTRICIT/TENOFOV (BIKTARVY) 50-200-25 MG TABLET PO SCH (07:36)
[2021-02-05] MEDS: NICOTINE 21 MG/24 HOURS TOPICAL PATCH TD SCH (10:32)
[2021-02-05] MEDS: ARTIFICIAL TEARS (POLYVINYL ALCOHOL) OPTH DROPS OU PRN (10:32)
[2021-02-05] MEDS: PANTOPRAZOLE 40 MG TABLET PO SCH (10:32)
[2021-02-05] MEDS: PRENATAL VITAMINS W/ FOLIC ACID TABLET (FP) PO SCH (10:32)
[2021-02-05] MEDS: MINERAL OIL/PETROLAT/WATER TOPICAL CREAM 113 GM JAR TP SCH (10:33)
[2021-02-05] MEDS: NICOTINE 10 MG CARTRIDGE (INHALER) IH PRN (18:58)
[2021-02-05] MEDS: ATORVASTATIN CA 10 MG TABLET (FP) PO SCH (21:56)
[2021-02-05] MEDS: hydrOXYzine PAMOATE 25 MG CAPSULE (FP) PO PRN (21:56)
[2021-02-05] MEDS: MELATONIN 5 MG TABLETS PO SCH (21:56)
[2021-02-05] MEDS: risperiDONE 1 MG TABLET PO SCH (21:56)
[2021-02-05] MEDS: DOCUSATE SODIUM 100 MG CAPSULE (FP) PO SCH (21:56)
[2021-02-05] MEDS: THIAMINE HCL 100 MG TABLET (FP) PO SCH (21:57)
[2021-02-06] MEDS: ARTIFICIAL TEARS (POLYVINYL ALCOHOL) OPTH DROPS OU PRN (06:51)
[2021-02-06] MEDS: PANTOPRAZOLE 40 MG TABLET PO SCH (10:31)
[2021-02-06] MEDS: NICOTINE 21 MG/24 HOURS TOPICAL PATCH TD SCH (10:31)
[2021-02-06] MEDS: PRENATAL VITAMINS W/ FOLIC ACID TABLET (FP) PO SCH (10:31)
[2021-02-06] MEDS: BICTEGRAV/EMTRICIT/TENOFOV (BIKTARVY) 50-200-25 MG TABLET PO SCH (10:31)
[2021-02-06] MEDS: MINERAL OIL/PETROLAT/WATER TOPICAL CREAM 113 GM JAR TP SCH (10:32)
[2021-02-06] MEDS: ATORVASTATIN CA 10 MG TABLET (FP) PO SCH (21:27)
[2021-02-06] MEDS: risperiDONE 1 MG TABLET PO SCH (21:28)
[2021-02-06] MEDS: DOCUSATE SODIUM 100 MG CAPSULE (FP) PO SCH (21:28)
[2021-02-06] MEDS: THIAMINE HCL 100 MG TABLET (FP) PO SCH (21:28)
[2021-02-06] MEDS: hydrOXYzine PAMOATE 25 MG CAPSULE (FP) PO PRN (21:29)
[2021-02-06] MEDS: MELATONIN 5 MG TABLETS PO SCH (21:29)
[2021-02-07] MEDS ORDERED: risperiDONE 1 MG TABLET PO SCH (06:49)
[2021-02-07] MEDS ORDERED: INSULIN (NOVOLOG) ASPART 100 UNITS/ML 10ML VIAL ONE (06:49)
[2021-02-07] MEDS: BICTEGRAV/EMTRICIT/TENOFOV (BIKTARVY) 50-200-25 MG TABLET PO SCH (07:08)
[2021-02-07] MEDS ORDERED: PT OWN MED DRAWER 7, Y5N ONE ×3 (07:10→21:48)
[2021-02-07] MEDS: ARTIFICIAL TEARS (POLYVINYL ALCOHOL) OPTH DROPS OU PRN ×2 (07:11→21:49)
[2021-02-07] MEDS: guaiFENesin 200 MG/10 ML 10 ML UNIT-DOSE CUPS PO PRN ×2 (07:56→21:19)
[2021-02-07] MEDS: NICOTINE 21 MG/24 HOURS TOPICAL PATCH TD SCH (09:53)
[2021-02-07] MEDS: PRENATAL VITAMINS W/ FOLIC ACID TABLET (FP) PO SCH (09:53)
[2021-02-07] MEDS: PANTOPRAZOLE 40 MG TABLET PO SCH (09:54)
[2021-02-07] MEDS: MINERAL OIL/PETROLAT/WATER TOPICAL CREAM 113 GM JAR TP SCH (09:54)
[2021-02-07] MEDS: AMOXICILLIN 500 MG CAPSULE (FP) PO SCH ×2 (15:08→21:19)
[2021-02-07] MEDS ORDERED: ALBUTEROL SO4 HFA INHALER IH PRN (15:38)
[2021-02-07] MEDS: ACETAMINOPHEN 325 MG TABLET (FP) PO PRN (20:14)
[2021-02-07] MEDS: ATORVASTATIN CA 10 MG TABLET (FP) PO SCH (21:18)
[2021-02-07] MEDS: DOCUSATE SODIUM 100 MG CAPSULE (FP) PO SCH (21:18)
[2021-02-07] MEDS: MELATONIN 5 MG TABLETS PO SCH (21:19)
[2021-02-07] MEDS: THIAMINE HCL 100 MG TABLET (FP) PO SCH (21:19)
[2021-02-08] MEDS ORDERED: PT OWN MED DRAWER 7, Y5N ONE (03:08)
[2021-02-08] MEDS: AMOXICILLIN 500 MG CAPSULE (FP) PO SCH ×2 (06:29→13:06)
[2021-02-08] MEDS: guaiFENesin 200 MG/10 ML 10 ML UNIT-DOSE CUPS PO PRN (06:29)
[2021-02-08] MEDS: ARTIFICIAL TEARS (POLYVINYL ALCOHOL) OPTH DROPS OU PRN ×2 (06:30→10:17)
[2021-02-08 07:14] VITALS: BP 140/79; PULSE 100; TEMP 97.7
[2021-02-08] MEDS ORDERED: ASPIRIN 81 MG CHEWABLE TABLETS PO SCH (10:00)
[2021-02-08] MEDS: NICOTINE 21 MG/24 HOURS TOPICAL PATCH TD SCH (10:17)
[2021-02-08] MEDS: PRENATAL VITAMINS W/ FOLIC ACID TABLET (FP) PO SCH (10:17)
[2021-02-08] MEDS: PANTOPRAZOLE 40 MG TABLET PO SCH (10:18)
[2021-02-08] MEDS: ACETAMINOPHEN 325 MG TABLET (FP) PO PRN (10:19)
[2021-02-08] MEDS: BICTEGRAV/EMTRICIT/TENOFOV (BIKTARVY) 50-200-25 MG TABLET PO SCH (10:19)
[2021-02-08] MEDS: MINERAL OIL/PETROLAT/WATER TOPICAL CREAM 113 GM JAR TP SCH (10:19)
[2021-02-08] MEDS ORDERED: guaiFENesin 600 MG TABLET.ER (FP) PO SCH (10:45)
[2021-02-08] MEDS ORDERED: BUDESONIDE/FORMETEROL FUMARATE 80/4.5 mcg INHALER IH SCH (10:45)
== END 2021-02-08 13:30 | disposition home or self-care (01) | DRG 772 ==
LOC: YASAS 13:19 → Y5N 13:20
PROVIDERS: ADMIT Allergy & Immunology; ATTEND Allergy & Immunology
PROC: HZ42ZZZ Group Counseling for Substance Abuse Treatment, Cognitive-Behavioral (ICD-10-PCS; principal; 2021-01-29)
DX: F10.20 Alcohol dependence, uncomplicated (principal); F14.20 Cocaine dependence, uncomplicated; F12.20 Cannabis dependence, uncomplicated; F17.210 Nicotine dependence, cigarettes, uncomplicated; F19.24 Other psychoactive substance dependence with psychoactive substance-induced mood disorder; F19.280 Other psychoactive substance dependence with psychoactive substance-induced anxiety disorder; F41.9 Anxiety disorder, unspecified; F32.9 Major depressive disorder, single episode, unspecified; Z21 Asymptomatic human immunodeficiency virus [HIV] infection status; K21.9 Gastro-esophageal reflux disease without esophagitis; E78.5 Hyperlipidemia, unspecified; J45.20 Mild intermittent asthma, uncomplicated; K59.00 Constipation, unspecified; J40 Bronchitis, not specified as acute or chronic; J06.9 Acute upper respiratory infection, unspecified; Z62.810 Personal history of physical and sexual abuse in childhood; Z56.0 Unemployment, unspecified
CPT/HCPCS: J2794

== ENCOUNTER 2021-11-17 10:58 | Inpatient (IN) | payer OTHER ==
[2021-11-17 11:33] VITALS: BMI 30.1
[2021-11-17] MEDS ORDERED: BENZOCAINE/MENTHOL (CHLORASEPTIC ) LOZENGE MM PRN (13:06)
[2021-11-17] MEDS ORDERED: MAGNESIUM HYDROX 2400MG/30ML ORAL SUSPENSION 30 ML CUP PO PRN (13:06)
[2021-11-17] MEDS ORDERED: NICOTINE 10 MG CARTRIDGE (INHALER) IH PRN (13:06)
[2021-11-17] MEDS ORDERED: DICYCLOMINE HCL 10 MG CAPSULE PO PRN (13:06)
[2021-11-17] MEDS ORDERED: chlordiazePOXIDE HCL 25 MG CAPSULE PO PRN (13:06)
[2021-11-17] MEDS ORDERED: ONDANSETRON *ODT* 4 MG TABLET SL PRN (13:06)
[2021-11-17] MEDS ORDERED: MAG HYDROX/AL HYDROX/SIMETH 30 ML UNIT-DOSE CUP PO PRN (13:06)
[2021-11-17] MEDS ORDERED: IBUPROFEN 600 MG TABLET (FP) PO PRN (13:06)
[2021-11-17] MEDS ORDERED: LOPERAMIDE HCL 2 MG CAPSULE PO PRN (13:06)
[2021-11-17] MEDS ORDERED: BISMUTH SUBSALICYLATE 524 MG/30 ML PO PRN (13:06)
[2021-11-17] MEDS ORDERED: IBUPROFEN 400 MG TABLET (FP) PO PRN (13:06)
[2021-11-17] MEDS ORDERED: ACETAMINOPHEN 325 MG TABLET (FP) PO PRN (13:06)
[2021-11-17] MEDS ORDERED: ARTIFICIAL TEARS (POLYVINYL ALCOHOL) OPTH DROPS OU PRN (13:12)
[2021-11-17] MEDS ORDERED: ALBUTEROL SO4 HFA INHALER IH PRN (13:12)
[2021-11-17] MEDS: hydrOXYzine PAMOATE 25 MG CAPSULE (FP) PO SCH ×3 (15:52→23:25)
[2021-11-17] MEDS: PANTOPRAZOLE 40 MG TABLET PO SCH (15:52)
[2021-11-17 17:12] LABS: CALCIUM 9.2 mg/dL (8.5-10.1); HEMATOCRIT 38.6 % (32.4-45.2); HEMOGLOBIN 12.4 GM/dL (10.7-15.3); MCH 28.7 pg (25.7-33.7); MCHC 32.2 g/dl (32.0-36.0); MEAN CELL VOLUME 89.2 fl (80-96); MEAN PLT VOLUME 9.2 fl (7.5-11.1); PLATELET COUNT 204 10^3/uL (134-434); RBC 4.33 M/mm3 (3.60-5.2); WHITE BLOOD COUNT 5.6 K/mm3 (4.0-10.0)
[2021-11-17 17:13] LABS: BLOOD UREA NITROGEN 18.2 mg/dL (7-18)
[2021-11-17 17:16] LABS: BILIRUBIN,TOTAL 0.4 mg/dL (0.2-1)
[2021-11-17 17:17] LABS: TOT PROT 7.8 g/dl (6.4-8.2)
[2021-11-17] MEDS: chlordiazePOXIDE HCL 25 MG CAPSULE PO SCH ×2 (18:55→23:25)
[2021-11-17] MEDS: ATORVASTATIN CA 10 MG TABLET (FP) PO SCH (23:25)
[2021-11-17] MEDS: THIAMINE HCL 100 MG TABLET (FP) PO SCH (23:26)
[2021-11-17] MEDS: ACETAMINOPHEN 325 MG TABLET (FP) PO PRN (23:27)
[2021-11-18] MEDS: MELATONIN 5 MG TABLETS PO SCH ×2 (00:18→22:42)
[2021-11-18] MEDS: chlordiazePOXIDE HCL 25 MG CAPSULE PO SCH ×4 (06:28→22:41)
[2021-11-18] MEDS: hydrOXYzine PAMOATE 25 MG CAPSULE (FP) PO SCH ×5 (06:28→22:39)
[2021-11-18] MEDS: ARIPiprazole 2 MG TABLET PO SCH (10:34)
[2021-11-18] MEDS: PRENATAL VITAMINS W/ FOLIC ACID TABLET (FP) PO SCH (10:34)
[2021-11-18] MEDS: PANTOPRAZOLE 40 MG TABLET PO SCH (10:34)
[2021-11-18] MEDS: BACLOFEN 10 MG TABLET (FP) PO PRN ×2 (10:38→22:43)
[2021-11-18] MEDS ORDERED: COLLOIDAL OATMEAL 1 BAR EACH TP PRN (10:42)
[2021-11-18] MEDS ORDERED: GABAPENTIN 300 MG CAPSULE PO PRN (10:42)
[2021-11-18] MEDS: ASPIRIN 81 MG CHEWABLE TABLETS PO SCH (11:42)
[2021-11-18] MEDS: NEOMYCIN AS SCH ×2 (11:42→22:46)
[2021-11-18] MEDS: DOVATO PO SCH (11:42)
[2021-11-18] MEDS: POLYMYXIN B AS SCH ×2 (11:42→22:46)
[2021-11-18] MEDS: HYDROCORTISONE AS SCH ×2 (11:42→22:46)
[2021-11-18] MEDS: NICOTINE POLACRILEX 2 MG GUM BUC PRN ×2 (11:46→18:04)
[2021-11-18] MEDS: ATORVASTATIN CA 10 MG TABLET (FP) PO SCH (22:39)
[2021-11-18] MEDS: DOCUSATE SODIUM 100 MG CAPSULE (FP) PO SCH (22:39)
[2021-11-18] MEDS: CALCIUM 250MG/VIT-D 125 UNITS 1 COMBO TABLET PO SCH (22:40)
[2021-11-18] MEDS: THIAMINE HCL 100 MG TABLET (FP) PO SCH (22:45)
[2021-11-19] MEDS: chlordiazePOXIDE HCL 25 MG CAPSULE PO SCH ×4 (05:43→23:51)
[2021-11-19] MEDS: hydrOXYzine PAMOATE 25 MG CAPSULE (FP) PO SCH ×5 (05:43→23:51)
[2021-11-19] MEDS: PRENATAL VITAMINS W/ FOLIC ACID TABLET (FP) PO SCH (10:43)
[2021-11-19] MEDS: ASPIRIN 81 MG CHEWABLE TABLETS PO SCH (10:43)
[2021-11-19] MEDS: PANTOPRAZOLE 40 MG TABLET PO SCH (10:43)
[2021-11-19] MEDS: ARIPiprazole 2 MG TABLET PO SCH (10:44)
[2021-11-19] MEDS: NEOMYCIN AS SCH ×2 (10:44→23:50)
[2021-11-19] MEDS: BACLOFEN 10 MG TABLET (FP) PO PRN ×2 (10:44→22:35)
[2021-11-19] MEDS: HYDROCORTISONE AS SCH ×2 (10:44→23:50)
[2021-11-19] MEDS: CALCIUM 250MG/VIT-D 125 UNITS 1 COMBO TABLET PO SCH ×2 (10:44→22:33)
[2021-11-19] MEDS: DOVATO PO SCH (10:44)
[2021-11-19] MEDS: POLYMYXIN B AS SCH ×2 (10:44→23:50)
[2021-11-19] MEDS: NICOTINE POLACRILEX 2 MG GUM BUC PRN (10:47)
[2021-11-19] MEDS: THIAMINE HCL 100 MG TABLET (FP) PO SCH (22:32)
[2021-11-19] MEDS: ATORVASTATIN CA 10 MG TABLET (FP) PO SCH (22:32)
[2021-11-19] MEDS: DOCUSATE SODIUM 100 MG CAPSULE (FP) PO SCH (22:32)
[2021-11-19] MEDS: MAGNESIUM CITRATE 300 ML BOTTLE PO PRN (22:34)
[2021-11-19] MEDS: MELATONIN 5 MG TABLETS PO SCH (23:51)
[2021-11-20] MEDS ORDERED: chlordiazePOXIDE HCL 10 MG CAPSULE PO PRN
[2021-11-20] MEDS: chlordiazePOXIDE HCL 10 MG CAPSULE PO SCH ×4 (05:48→22:12)
[2021-11-20] MEDS: hydrOXYzine PAMOATE 25 MG CAPSULE (FP) PO SCH ×5 (05:48→22:10)
[2021-11-20] MEDS: CALCIUM 250MG/VIT-D 125 UNITS 1 COMBO TABLET PO SCH ×2 (10:31→23:33)
[2021-11-20] MEDS: PANTOPRAZOLE 40 MG TABLET PO SCH (10:31)
[2021-11-20] MEDS: PRENATAL VITAMINS W/ FOLIC ACID TABLET (FP) PO SCH (10:31)
[2021-11-20] MEDS: ASPIRIN 81 MG CHEWABLE TABLETS PO SCH (10:31)
[2021-11-20] MEDS: ARIPiprazole 2 MG TABLET PO SCH (10:31)
[2021-11-20] MEDS: POLYMYXIN B AS SCH ×2 (10:32→23:33)
[2021-11-20] MEDS: NEOMYCIN AS SCH ×2 (10:32→23:33)
[2021-11-20] MEDS: HYDROCORTISONE AS SCH ×2 (10:32→23:33)
[2021-11-20] MEDS: DOVATO PO SCH (10:33)
[2021-11-20] MEDS: NICOTINE POLACRILEX 2 MG GUM BUC PRN (10:38)
[2021-11-20] MEDS: ARTIFICIAL TEARS (POLYVINYL ALCOHOL) OPTH DROPS OU SCH ×2 (12:08→22:11)
[2021-11-20] MEDS: DOCUSATE SODIUM 100 MG CAPSULE (FP) PO SCH (22:10)
[2021-11-20] MEDS: THIAMINE HCL 100 MG TABLET (FP) PO SCH (22:10)
[2021-11-20] MEDS: MELATONIN 5 MG TABLETS PO SCH (22:10)
[2021-11-20] MEDS: ATORVASTATIN CA 10 MG TABLET (FP) PO SCH (22:10)
[2021-11-21] MEDS: hydrOXYzine PAMOATE 25 MG CAPSULE (FP) PO SCH ×5 (05:46→22:09)
[2021-11-21] MEDS: chlordiazePOXIDE HCL 10 MG CAPSULE PO SCH ×2 (05:46→17:31)
[2021-11-21] MEDS: PRENATAL VITAMINS W/ FOLIC ACID TABLET (FP) PO SCH (10:37)
[2021-11-21] MEDS: POLYMYXIN B AS SCH ×2 (10:38→22:10)
[2021-11-21] MEDS: ARTIFICIAL TEARS (POLYVINYL ALCOHOL) OPTH DROPS OU SCH ×2 (10:38→22:12)
[2021-11-21] MEDS: HYDROCORTISONE AS SCH ×2 (10:38→22:10)
[2021-11-21] MEDS: ASPIRIN 81 MG CHEWABLE TABLETS PO SCH (10:38)
[2021-11-21] MEDS: PANTOPRAZOLE 40 MG TABLET PO SCH (10:38)
[2021-11-21] MEDS: NEOMYCIN AS SCH ×2 (10:38→22:10)
[2021-11-21] MEDS: ARIPiprazole 2 MG TABLET PO SCH (10:38)
[2021-11-21] MEDS: CALCIUM 250MG/VIT-D 125 UNITS 1 COMBO TABLET PO SCH ×2 (10:39→23:02)
[2021-11-21] MEDS: DOVATO PO SCH (10:39)
[2021-11-21] MEDS: ACETAMINOPHEN 325 MG TABLET (FP) PO PRN (10:41)
[2021-11-21] MEDS: MELATONIN 5 MG TABLETS PO SCH (22:09)
[2021-11-21] MEDS: THIAMINE HCL 100 MG TABLET (FP) PO SCH (22:09)
[2021-11-21] MEDS: ATORVASTATIN CA 10 MG TABLET (FP) PO SCH (22:09)
[2021-11-21] MEDS: DOCUSATE SODIUM 100 MG CAPSULE (FP) PO SCH (22:09)
[2021-11-21] MEDS: MAGNESIUM CITRATE 300 ML BOTTLE PO PRN (22:11)
[2021-11-22] MEDS ORDERED: chlordiazePOXIDE HCL 10 MG CAPSULE PO ONE (05:00)
[2021-11-22] MEDS: hydrOXYzine PAMOATE 25 MG CAPSULE (FP) PO SCH ×2 (05:57→09:45)
[2021-11-22 06:07] VITALS: PULSE 99
[2021-11-22 09:28] VITALS: BP 118/83; RESP 17; TEMP 97.4
[2021-11-22] MEDS: ARIPiprazole 2 MG TABLET PO SCH (09:43)
[2021-11-22] MEDS: ASPIRIN 81 MG CHEWABLE TABLETS PO SCH (09:43)
[2021-11-22] MEDS: BACLOFEN 10 MG TABLET (FP) PO PRN (09:43)
[2021-11-22] MEDS: PRENATAL VITAMINS W/ FOLIC ACID TABLET (FP) PO SCH (09:43)
[2021-11-22] MEDS: CALCIUM 250MG/VIT-D 125 UNITS 1 COMBO TABLET PO SCH (09:44)
[2021-11-22] MEDS: ARTIFICIAL TEARS (POLYVINYL ALCOHOL) OPTH DROPS OU SCH (09:44)
[2021-11-22] MEDS: POLYMYXIN B AS SCH (09:45)
[2021-11-22] MEDS: DOVATO PO SCH (09:45)
[2021-11-22] MEDS: NEOMYCIN AS SCH (09:45)
[2021-11-22] MEDS: HYDROCORTISONE AS SCH (09:45)
[2021-11-22] MEDS: PANTOPRAZOLE 40 MG TABLET PO SCH (09:46)
== END 2021-11-22 09:57 | disposition home or self-care (01) | DRG 774 ==
LOC: YASAS 10:58 → Y6N 15:22
PROVIDERS: ADMIT Allergy & Immunology; ATTEND Surgery
PROC: HZ2ZZZZ Detoxification Services for Substance Abuse Treatment (ICD-10-PCS; principal; 2021-11-17)
DX: F10.230 Alcohol dependence with withdrawal, uncomplicated (principal); F14.20 Cocaine dependence, uncomplicated; F12.10 Cannabis abuse, uncomplicated; F17.210 Nicotine dependence, cigarettes, uncomplicated; F20.9 Schizophrenia, unspecified; F41.9 Anxiety disorder, unspecified; F43.10 Post-traumatic stress disorder, unspecified; F32.A Depression, unspecified; F19.24 Other psychoactive substance dependence with psychoactive substance-induced mood disorder; J45.20 Mild intermittent asthma, uncomplicated; Z21 Asymptomatic human immunodeficiency virus [HIV] infection status; E78.1 Pure hyperglyceridemia; H04.129 Dry eye syndrome of unspecified lacrimal gland; K59.01 Slow transit constipation; E58 Dietary calcium deficiency; Z86.59 Personal history of other mental and behavioral disorders; Z62.810 Personal history of physical and sexual abuse in childhood; Z91.51 Personal history of suicidal behavior; Z56.0 Unemployment, unspecified
CPT/HCPCS: 36415; 80053; 81025; 82962; 85027; 86780; 87811; C9803-CS; J0475; U0003; U0005

== ENCOUNTER 2024-06-22 13:25 | Inpatient (IN) | payer OTHER ==
[2024-06-22] MEDS ORDERED: MAGNESIUM HYDROX 2400MG/30ML ORAL SUSPENSION 30 ML CUP PO PRN (14:06)
[2024-06-22] MEDS ORDERED: NICOTINE POLACRILEX 2 MG GUM BUC PRN (14:06)
[2024-06-22] MEDS ORDERED: guaiFENesin 600 MG TABLET.ER (FP) PO PRN (14:06)
[2024-06-22] MEDS ORDERED: LOPERAMIDE HCL 2 MG CAPSULE PO PRN (14:06)
[2024-06-22] MEDS ORDERED: NALOXONE (NARCAN) HCL 4 MG/0.1 ML SPRAY NS PRN (14:06)
[2024-06-22] MEDS ORDERED: IBUPROFEN 600 MG TABLET (FP) PO PRN (14:06)
[2024-06-22] MEDS ORDERED: ACETAMINOPHEN 325 MG TABLET (FP) PO PRN (14:06)
[2024-06-22] MEDS ORDERED: IBUPROFEN 400 MG TABLET (FP) PO PRN (14:06)
[2024-06-22] MEDS ORDERED: BENZONATATE 200 MG CAPSULE PO PRN (14:06)
[2024-06-22 14:22] VITALS: BMI 30.4
[2024-06-22 17:07] LABS: HEMATOCRIT 38.1 % (32.4-45.2); HEMOGLOBIN 12.5 GM/dL (10.7-15.3); MCH 29.6 pg (25.7-33.7); MCHC 32.8 g/dl (32.0-36.0); MEAN CELL VOLUME 90.1 fl (80-96); MEAN PLT VOLUME 8.8 fl (7.5-11.1); PLATELET COUNT 218 10^3/uL (134-434); RBC 4.23 M/mm3 (3.60-5.2); RDW 15.1 % (11.6-15.6); WHITE BLOOD COUNT 4.6 K/mm3 (4.0-10.0)
[2024-06-22 17:09] LABS: POTASSIUM 3.8 mmol/L (3.5-5.1)
[2024-06-22 17:12] LABS: CALCIUM 9.3 mg/dL (8.5-10.1)
[2024-06-22 17:13] LABS: ALBUMIN 3.9 g/dl (3.4-5.0); BLOOD UREA NITROGEN 15.8 mg/dL (7-18)
[2024-06-22 17:17] LABS: BILIRUBIN,TOTAL 0.3 mg/dL (0.2-1)
[2024-06-22 17:18] LABS: TOT PROT 7.2 g/dl (6.4-8.2)
[2024-06-22 17:41] LABS: SYPHILIS W/ RPR CONF NON-REACTIVE (NONREACTIVE)
[2024-06-22 19:17] LABS: EPI CELLS 15 /uL (0-25.1); HYALINE CASTS 1 /uL (0-3.1); URINE APPEARANCE CLEAR; URINE BACTERIA 220 /uL (0-1359); URINE BILIRUBIN NEGATIVE (NEGATIVE); URINE COLOR YELLOW; URINE GLUCOSE (UA) NEGATIVE (NEGATIVE); URINE KETONE NEGATIVE (NEGATIVE); URINE LEUK ESTERASE NEGATIVE (NEGATIVE); URINE NITRITE NEGATIVE (NEGATIVE); URINE PROTEIN NEGATIVE (NEGATIVE); URINE RBC 24 /uL (0-23.9); URINE UROBILINOGEN 0.2 mg/dL (0.2-1.0); URINE WBC 20 /uL (0-25.8)
[2024-06-22] MEDS: THIAMINE 100 MG TABLET PO SCH (21:54)
[2024-06-22] MEDS: MELATONIN 5 MG TABLETS PO SCH (21:54)
[2024-06-23] MEDS: NICOTINE 14 MG/24 HOURS TOPICAL PATCH TD SCH (10:05)
[2024-06-23] MEDS: PRENATAL VITAMINS W/ FOLIC ACID TABLET (FP) PO SCH (10:05)
[2024-06-23] MEDS ORDERED: ALBUTEROL SO4 HFA INHALER IH PRN (12:47)
[2024-06-23] MEDS: ATORVASTATIN CA 10 MG TABLET (FP) PO SCH (21:40)
[2024-06-23] MEDS: CALCIUM 250MG/VIT-D 125 UNITS 1 COMBO TABLET PO SCH (21:40)
[2024-06-23] MEDS: hydrOXYzine PAMOATE 25 MG CAPSULE (FP) PO PRN (21:40)
[2024-06-23] MEDS: DOLUTEGRAVIR SODIUM 50 MG TABLET (NON-FORMULARY) PO SCH (21:56)
[2024-06-24] MEDS ORDERED: DOLUTEGRAVIR SODIUM 50 MG TABLET (NON-FORMULARY) PO SCH (08:00)
[2024-06-24] MEDS ORDERED: DOVATO PO SCH (10:00)
[2024-06-24] MEDS: ARTIFICIAL TEARS OPHTHALMIC DROPS OD SCH (11:06)
[2024-06-24] MEDS: DOCUSATE SODIUM 100 MG CAPSULE (FP) PO SCH (11:08)
[2024-06-24] MEDS: ASPIRIN 81 MG CHEWABLE TABLETS PO SCH (11:08)
[2024-06-24] MEDS: ERGOCALCIFEROL (VIT D2) 50,000 UNIT (1.25 MG) CAPSULE PO SCH (11:08)
[2024-06-24] MEDS: BENZOCAINE/MENTHOL (CHLORASEPTIC ) LOZENGE MM PRN (11:13)
[2024-06-24] MEDS: GABAPENTIN 100 MG CAPSULE PO SCH (21:33)
[2024-06-24] MEDS: MAG HYDROX/AL HYDROX/SIMETH 30 ML UNIT-DOSE CUP PO PRN (21:33)
[2024-06-25] MEDS: PANTOPRAZOLE 20 MG TABLET PO ONE (18:01)
[2024-06-26] MEDS: PANTOPRAZOLE 40 MG TABLET PO SCH (13:00)
[2024-06-28] MEDS: POLYETHYLENE GLYCOL (HEALTHYLAX) 3350 17 GM PACKET PO PRN (19:00)
[2024-06-29 06:42] VITALS: BP 130/83; PULSE 81; RESP 16; TEMP 97.8
== END 2024-06-29 10:20 | disposition home or self-care (01) | DRG 772 ==
LOC: YASAS 13:25 → Y3NR 16:10 → Y5N 06-25 10:42 → Y3NR 06-25 14:33
PROVIDERS: ADMIT Allergy & Immunology; ATTEND Psychiatry & Neurology Pain Medicine
PROC: HZ42ZZZ Group Counseling for Substance Abuse Treatment, Cognitive-Behavioral (ICD-10-PCS; principal; 2024-06-22)
DX: F10.20 Alcohol dependence, uncomplicated (principal); F14.20 Cocaine dependence, uncomplicated; F12.20 Cannabis dependence, uncomplicated; F17.210 Nicotine dependence, cigarettes, uncomplicated; F31.9 Bipolar disorder, unspecified; F20.9 Schizophrenia, unspecified; Z21 Asymptomatic human immunodeficiency virus [HIV] infection status; E78.5 Hyperlipidemia, unspecified; J45.20 Mild intermittent asthma, uncomplicated; K21.9 Gastro-esophageal reflux disease without esophagitis; K59.01 Slow transit constipation; Z20.822 Contact with and (suspected) exposure to COVID-19; Z62.810 Personal history of physical and sexual abuse in childhood; Z91.410 Personal history of adult physical and sexual abuse; Z63.8 Other specified problems related to primary support group; Z63.0 Problems in relationship with spouse or partner; Z79.899 Other long term (current) drug therapy
CPT/HCPCS: 36415; 80053; 80305; 80307; 81003; 81025; 85027; 86780; 86803; 87811; 93005; 93010